=== PATIENT | male | born 2000 | race Caucasian/White ===

== ENCOUNTER 2019-01-25 11:06 | Emergency (ER) | payer OTHER ==
--- NOTE | 2019-01-25 19:32 | EDV ---
[f rep st] EMERGENCY DEPARTMENT REPORT CHIEF COMPLAINT: Head injury. HISTORY OF PRESENT ILLNESS: The patient was snowboarding in the [facility] [place] 2 days at [place]. Snowboard went up, head went down, he struck the back of his head on the slope. He did not lose consciousness. He was wearing a helmet. He has continued to have now frontal headache for the past 2 days. He has had sensitivity to light and loud noise. He has neck pain on both sides of his neck. No nausea or vomiting. No chest injury, abdominal injury, injury to arms or legs. No previous concussion. REVIEW OF SYSTEMS: Complete review of systems is negative. ADULT PHYSICAL EXAMINATION: GENERAL APPEARANCE: Alert, pleasant, well- developed male. Mild distress. VITAL SIGNS: Stable. Exam significant for: HEAD: No evidence of trauma or bumps. EARS: Tympanic membranes: Possible trace hemotympanum right tympanic membrane. Left is normal. Pupils equal, round and reactive. No oropharyngeal or dental trauma. NECK AND BACK: Cervical spine is nontender over the C-spine but he has tenderness to the sternocleidomastoids both sides of his neck. No T, L, S spine tenderness. CHEST: Normal. ABDOMEN: Normal. SKIN: Shows no rash or abrasions. EXTREMITIES: Normal. NEUROLOGICAL: The patient is oriented with intact motor and sensitivity. PSYCHIATRIC: The patient is oriented x3 without agitation or confusion. ED COURSE: Head CT noncontrast reviewed by me and discussed with Dr. Hannon shows no evidence for skull fracture or intracranial bleeding. There is fullness to the right maxillary sinus. On reevaluation, the patient is stable. The patient and his dad and I discuss imaging study results. We discussed treatment plan including criteria for return, importance of followup and further evaluation. We discussed head injury and concussion precautions. MEDICAL DECISION MAKING: I considered concussion, skull fracture, intracranial bleeding. PLAN: Home with concussion instructions and precautions. Aftercare instructions are handwritten by me. DISPOSITION: Home. CLINICAL IMPRESSION: Concussion. /[id number]/MODL MTDD
== END 2019-01-25 14:05 | disposition home or self-care (01) ==
LOC: CED 11:06
DX: S06.0X0A Concussion without loss of consciousness, initial encounter (principal); V00.311A Fall from snowboard, initial encounter; Y93.23 Activity, snow (alpine) (downhill) skiing, snowboarding, sledding, tobogganing and snow tubing; Y92.828 Other wilderness area as the place of occurrence of the external cause
CPT/HCPCS: 70450-PO; 99284-ER